=== PATIENT | male | born 1960 ===

== ENCOUNTER 2022-04-25 05:09 | Day surgery (SDC) | payer OTHER ==
[~2022-04-25] VITALS: Ht 167.6 cm; Wt 88.5 kg
== END 2022-04-25 17:00 | disposition home or self-care (01) ==
LOC: CIR.AMB 05:09
PROVIDERS: ATTEND Colon & Rectal Surgery
DX: K60.1 Chronic anal fissure (principal); K62.4 Stenosis of anus and rectum; K62.9 Disease of anus and rectum, unspecified; K59.09 Other constipation; K92.2 Gastrointestinal hemorrhage, unspecified; K62.89 Other specified diseases of anus and rectum; Z20.822 Contact with and (suspected) exposure to COVID-19; E03.9 Hypothyroidism, unspecified; I10 Essential (primary) hypertension